=== PATIENT | female | born 1955 | race Caucasian/White ===

== ENCOUNTER → 2018-01-08 12:01 | Outpatient (CLI) | payer MEDICAID ==
[~2018-01-08 12:01] MED LIST: BENZONATATE200 MG PO; CORDARONE200 MG PO; HEMOCYTE PLUS C1 CAP PO; IPRAT-ALBUT 0.5-3 ML UPD; KLOR-CON M2020 MEQ; LEVAQUIN750 MG PO; LOPRESSOR25 MG PO; MEDROL DOSE PACK4 MG PO; PROAIR HFA8.5 GM INH; REMERON30 MG PO; SYMBICORT 16010.2 GM INH
[2018-01-10 10:21] VITALS: BMI 18.7
== END | disposition home or self-care (01) ==
LOC: D.ECHO 12:00
DX: I31.3 Pericardial effusion (noninflammatory) (principal)

== ENCOUNTER 2018-01-09 15:11 | Inpatient (IN) | payer MEDICAID ==
[~2018-01-09] VITALS: Ht 152.4 cm; Wt 45.7 kg
--- NOTE | ~2018-01-09 | HP ---
PATIENT: KARTIK HERNANDEZ MEDICAL RECORD: [id number] ACCOUNT: [id number] LOCATION:D.[facility] : 55 ADMISSION DATE: 01/09/18 HISTORY AND PHYSICAL EXAMINATION KARTIK Chand (62yo, F) ID# [id number]. Date/Time01/08/2018 11:03PQZSB35/12/195Service Dept.NPP_[facility] ClinicProviderEDRIO JUAREZ MDInsuranceMed Primary: [place] Insurance # : [id number] PCP : MIKAL GOMES Employer Name : RETIRED Prescription: [employer] [employer] - Member is eligible. Chief Complaint pericardial effusion Patient's Care Team Primary Care Provider (): MIKAL GOMES: [address] [place] [address], , Vitals BP:112/70 sitting L arm 01/08/2018 11:14 amBP Cuff Size:adult 01/08/2018 11:14 amHR:100,reg 01/08/2018 11:14 amHt:5 ft 01/08/2018 11:14 amWt:96 lbs 01/08/2018 11:14 amNotes:short of breath except for 24-48 hours after treatments, when it is better. 01/08/2018 11:15 amBMI:18.7 01/08/2018 11:14 amAllergies Reviewed Allergies ANIMAL DANDERDARVONNUT - UNSPECIFIEDMedications Reviewed Medications Chantix Starting Month Box 0.5 mg (11)-1 mg (42) tablets in dose pack10/18/17 filledMagell[place] Medicaid Administrationescitalopram 5 mg usvyai79/05/18 filledMag[place] Medicaid Administrationmirtazapine 30 mg apumsk88/30/18 filledMag[place] Medicaid Administrationondansetron HCl 8 mg suzpwt24/20/18 filledMag[place] Medicaid Administrationoxygen 2LNC at night01/08/18 enteredKathy Wilsonpotassium chloride ER 20 mEq tablet,extended /27/18 filledAlgellan Medicaid AdministrationProAir HFA 90 mcg/actuation aerosol jeobmzo00/27/18 filledMagell[place] Medicaid AdministrationProblems Reviewed Problems Pericardial effusion - Onset: 01/02/2018 Family History Reviewed Family History Mother- Heart diseaseSocial History Reviewed Social History Cardiology Family history of heart disease?: Y Smoking Status: Current every day smoker Smoker (1/2 PPD) High Cholesterol: N High blood pressure: N Diabetes: N Alcohol intake: Occasional Diet: Regular Occupation: disabled Tobacco-years of use: 30 Surgical History Reviewed Surgical History HISTORY AND PHYSICAL [id number] KARTIK HERNANDEZ Removal of gallbladder Other - 08/27/1999 - facial fracture repair [employer] History (not configured) Past Medical History Reviewed Past Medical History Anemia: Y Cancer: Y - NSC lung ca Dizzy Spells: Y Shortness of Breath: Y Documents for Discussion N/A Screening None recorded. HPI Dyspnea Reported by patient. Quality: can't catch breath Severity: moderate Onset/Timing: daily Context: with activity; at rest Alleviating Factors: better after chemo Aggravating Factors: activity Associated Symptoms: no palpitations; no orthopnea; no fever; no chills; no dietary indiscretion; no hemoptysis; no weight gain; no dyspepsia; chest pain/discomfort; wheezing; coughing up sputum; lightheadedness pericardial effusion Non-small cell carcinoma right lung ROS Patient reports weight loss (20 lbs) and exercise intolerance but reports no fever, no night sweats, and no significant weight gain. She reports vision change (OD) but reports no dry eyes and no irritation. She reports jugular vein distension but reports no swollen glands. S he reports no chest pain, no arm pain on exertion, no shortness of breath when walking, no shortness of breath when lying down, no palpitations, and no known heart murmur; rresting tachycardia. She reports cough and shortness of breath but reports no wheez ing and no coughing up blood. She reports muscle aches and muscle weakness but reports no arthralgias/joint pain, no back pain, and no swelling in the extremities. She reports no swollen glands and no bruising; neutropenia. She reports no difficulty hearin g and no ear pain. She reports no frequent nosebleeds and no nose/sinus problems. She reports no sore throat, no bleeding gums, no snoring, no dry mouth, no mouth ulcers, no oral abnormalities, and no teeth problems. She reports no abdominal pain, no vomi t ing, normal appetite, no diarrhea, not vomiting blood, no nausea, and no constipation. She reports no incontinence, no difficulty urinating, no hematuria, and no increased frequency. She reports no abnormal mole, no jaundice, and no rashes. She reports no loss of consciousness, no weakness, no numbness, no seizures, no dizziness, and no headaches. She reports no depression, no sleep disturbances, feeling safe in relationship, and no alcohol abuse. She reports no fatigue. She reports no runny nose, no sinus pressure, no itching, no hives, and no frequent sneezing. ROS as noted in the HPI Physical Exam Patient is a 62-year-old female. Constitutional: General Appearance cachectic. Level of Distress chronically ill. Ambulation ambulating normally. HISTORY AND PHYSICAL [id number] KARTIK HERNANDEZ Cardiovascular: Apical Impulse not displaced or no thrill. Heart Auscultation normal s1 and s2; no murmurs, rubs, or gallops; and RRR and tachycardia. Neck Vessels JVD. Arterial Pulses no abdominal aorta bruits, femoral bruits, or popliteal bruits and 2+ bilateral, carotid 2+ bilateral, femoral 2+ bilateral, popliteal 2+ bilateral, and dorsalis pedis 2+ bilateral. Edema no edema or varicosities. Lungs: Repiratory Effort no dyspnea. Percussion dullness or flatness (right long) and hyperresonance (bilateral). Auscultation no wheezing, rhonchi, or rales / crackles; decreased breath sounds (right hemithorax) and diminished air movement (right); and CTA except as noted. Abdomen: Bowl Sounds normal. Inspection and Palpation no tenderness, guarding, masses, or re bound tenderness and soft and non-distended. Liver non-tender and no hepatomegaly. Spleen non-tender and no splenomegaly. Hernia none palpable. Musculoskeletal System: Gait And Stance normal gait and stance. Digits and Nails normal nails and no cyanosis. Neurologic: Cranial Nerves grossly intact. Reflexes DTRs 2+ bilaterally throughout. Sensation grossly intact. Lymph Nodes: Lymph Nodes no cervical LAD, supraclavicular LAD, axillary LAD, or inguinal LAD. Eyes: Lids and Conjunctivae no discharge or pallor and non-injected. Pupils PERRLA. Cornea grossly intact. EOM EOMI. Lens clear. Sclera non-icteric. Neck: Neck no masses, enlarged lymph nodes, or carotid bruits and supple and trachea midline. Thyroid no enlargement or nodules and non-tender. Skin: Inspection and Palpation no rash, lesions, ulcers, jaundice, or abnormal nevi. Assessment / Plan non-small cell carcinoma right lung with obstructive atelectasis Moderate to large pericardial effusion symptomatic 1. Pericardial effusion I31.3: Pericardial effusion (noninflammatory) Discussion Notes I think that she would benefit from drainage of pericardium Will repeat echocardiogram Review lab for neutropenia FREDI JUAREZ MD CC: [id number] DICTATION DATE: 01/08/18 1100 LINE INSTALLER REPAIRER: DM 01/09/18 1514 ADM IN [facility] [address] [place] [address]
--- NOTE | ~2018-01-09 | OP ---
PATIENT NAME: KARTIK HERNANDEZ MEDICAL RECORD: [id number] :55 LOCATION:D.CVI D.CV01 ADMISSION DATE:01/09/18 SURGEON: AJAY HEATH MD DATE OF OPERATION: 01/11/2018 SURGEON: Ajay Heath MD ASSISTANTS: Erik Wilson MD and MIRANDA Garner. OPERATION PERFORMED: Subxiphoid pericardial window. PREOPERATIVE DIAGNOSES: Pericardial effusion and history of lung cancer. POSTOPERATIVE DIAGNOSES: Pericardial effusion and history of lung cancer. ANESTHESIA: General endotracheal anesthesia. ESTIMATED BLOOD LOSS: Minimal. COMPLICATIONS: None. SPECIMENS: 1. 1 x 1 cm pericardial biopsy for permanent pathology. 2. Pericardial fluid for cytology, aerobic, anaerobic, AFB, and fungal cultures. COMPLICATIONS: None. CONDITION: Stable. DISPOSITION: CV ICU. OPERATIVE FINDINGS: 1. Transesophageal echocardiography revealed circumferential pericardial effusion with no evidence of right ventricular collapse, complete drainage. 2. 500 cc proteinaceous pericardial fluid. 3. Systolic blood pressure increased about 20 points on drainage. OPERATIVE INDICATIONS: Pericardial effusion. History of lung cancer, dyspnea. OPERATIVE FINDINGS: With the patient asleep, the chest was prepped and draped. Vertical incision over the xiphoid was made. There was no significant xiphoid process. Upper pressure of the left costal margin was performed after dividing the fascia and the pericardium was identified, aspirated and incised. The fluid was removed and sent for culture. The drain was placed through a separate stab wound. Hemostasis was assured. Marcaine was placed and the wound was closed in 3 layers. The patient was stable to CV ICU. TRANSINT:[id number] Voice Confirmation ID: [id number] DOCUMENT ID: [id number] OPERATIVE REPORT [id number] KARTIK HERNANDEZ AJAY HEATH MD at 1106 CC: RALF LOPEZ MD [id number] DICTATION DATE: 01/11/18 1550 MOP MAN: 01/11/18 2254 ADM IN [facility] [address] [place] [id number]
[2018-01-09 16:35] LABS: BASOPHILS 0.2 % (0-2); EOSINOPHILS 0.4 % (0-7); HEMOGLOBIN 8.4 g/dL (12-16); IMMATURE GRANULOCYTES 0.4 % (0-5); LYMPHOCYTES 20.2 % (15-50); MCH 29.3 pg (26.0-34.0); MCHC 32.3 g/dL (31.0-37.0); MCV 90.6 fL (80.0-100.0); MEAN PLATELET VOLUME 9.5 fL (7.4-10.4); MONOCYTES 8.3 % (2-11); NEUTROPHILS 70.5 % (40-80); PLATELET COUNT 178 10x3/uL (130-400); RBC 2.87 10x6/uL (4.00-5.40); RDW 18.9 % (11.5-14.5); WBC 4.5 10x3/uL (4.8-10.8)
[2018-01-09 16:50] LABS: APTT 25.7 SECONDS (22.8-39.4); INR 1.06 (0.85-1.17); PROTIME 13.4 SECONDS (11.6-15.0)
[2018-01-09 16:55] LABS: ALBUMIN 2.7 g/dL (3.4-5.0); ANION GAP 16.6 mmol/L (8-16); BILIRUBIN - TOTAL 0.27 mg/dL (0.2-1.3); CALCIUM 8.2 mg/dL (8.5-10.1); CARBON DIOXIDE 28.7 mmol/L (21.0-32.0); POTASSIUM - SERUM 4.3 mmol/L (3.5-5.1); PROTEIN - SERUM 6.8 g/dL (6.4-8.2)
[2018-01-09 21:54] VITALS: BP 103/59
[2018-01-10 02:37] VITALS: BP 106/58
[2018-01-10 04:54] VITALS: BMI 18.7
[2018-01-10 05:01] VITALS: BP 118/71
[2018-01-10 05:53] LABS: APPEARANCE CLEAR (CLEAR); BILIRUBIN NEGATIVE (NEGATIVE); COLOR YELLOW (YELLOW); GLUCOSE NEGATIVE (NEGATIVE); KETONE NEGATIVE (NEGATIVE); NITRITE NEGATIVE (NEGATIVE); PROTEIN NEGATIVE (NEGATIVE); SPECIFIC GRAVITY 1.015 (1.005-1.020); UROBILINOGEN NORMAL (NORMAL)
[2018-01-10 05:54] LABS: BACTERIA FEW /hpf (NONE SEEN); EPITHELIAL CELLS 0-5 /hpf (0-5); RED CELLS - URINE 0-5 /hpf (0-5); WHITE CELLS - URINE 0-5 /hpf (0-5)
[2018-01-10 06:33] LABS: HEMATOCRIT 24.9 % (36.0-48.0); MCHC 32.1 g/dL (31.0-37.0); MCV 90.2 fL (80.0-100.0); MEAN PLATELET VOLUME 9.4 fL (7.4-10.4); PLATELET COUNT 153 10x3/uL (130-400); RBC 2.76 10x6/uL (4.00-5.40); RDW 19.1 % (11.5-14.5)
[2018-01-10 06:36] LABS: WBC 3.1 10x3/uL (4.8-10.8)
[2018-01-10 07:25] LABS: BASOPHILS 1 % (0-2); EOSINOPHILS 1 % (0-7); LYMPHOCYTES 32 % (15-50); MONOCYTES 6 % (2-11); NEUTROPHILS 60 % (40-80); PLATELET ESTIMATE NORMAL
[2018-01-10 09:02] VITALS: BP 121/75
[2018-01-10 10:21] VITALS: Ht 152.4 cm; Wt 45.7 kg
[2018-01-10] MEDS ORDERED: REMERON30 MG PO (13:08)
[2018-01-10] MEDS ORDERED: BENZONATATE200 MG PO (13:10)
[2018-01-10] MEDS ORDERED: PROAIR HFA8.5 GM INH (13:11)
[2018-01-10] MEDS ORDERED: KLOR-CON M2020 MEQ (13:12)
[2018-01-10 13:57] VITALS: BP 108/69
[2018-01-10 14:58] LABS: BASOPHILS 0.4 % (0-2); EOSINOPHILS 0.4 % (0-7); HEMATOCRIT 24.5 % (36.0-48.0); HEMOGLOBIN 7.8 g/dL (12-16); LYMPHOCYTES 31.4 % (15-50); MCH 28.8 pg (26.0-34.0); MCHC 31.8 g/dL (31.0-37.0); MCV 90.4 fL (80.0-100.0); MEAN PLATELET VOLUME 9.4 fL (7.4-10.4); NEUTROPHILS 56.8 % (40-80); PLATELET COUNT 142 10x3/uL (130-400); RBC 2.71 10x6/uL (4.00-5.40); RDW 18.8 % (11.5-14.5); WBC 2.6 10x3/uL (4.8-10.8)
[2018-01-10 15:11] LABS: ALBUMIN 2.4 g/dL (3.4-5.0); ANION GAP 12.6 mmol/L (8-16); BILIRUBIN - TOTAL 0.24 mg/dL (0.2-1.3); CALCIUM 7.4 mg/dL (8.5-10.1); CARBON DIOXIDE 29.7 mmol/L (21.0-32.0); PHOSPHOROUS 3.8 mg/dL (2.5-4.9); URIC ACID 4.3 mg/dL (2.6-7.2)
[2018-01-10 15:15] LABS: APTT 26.4 SECONDS (22.8-39.4); INR 1.01 (0.85-1.17); POTASSIUM - SERUM 3.3 mmol/L (3.5-5.1); PROTIME 12.9 SECONDS (11.6-15.0)
[2018-01-10 17:20] VITALS: BP 97/62
[2018-01-10 21:15] VITALS: BP 91/58
[2018-01-11] VITALS (16 sets, daily range): BP systolic 90–134; BP diastolic 57–84
[2018-01-11 00:51] LABS: APPEARANCE CLEAR (CLEAR); BILIRUBIN NEGATIVE (NEGATIVE); COLOR YELLOW (YELLOW); GLUCOSE NEGATIVE (NEGATIVE); KETONE NEGATIVE (NEGATIVE); NITRITE NEGATIVE (NEGATIVE); PROTEIN NEGATIVE (NEGATIVE); UROBILINOGEN NORMAL (NORMAL)
[2018-01-11 16:32] LABS: BASOPHILS 0 % (0-2); EOSINOPHILS 0.3 % (0-7); HEMATOCRIT 28.8 % (36.0-48.0); HEMOGLOBIN 9.3 g/dL (12-16); IMMATURE GRANULOCYTES 0.3 % (0-5); LYMPHOCYTES 31.3 % (15-50); MCH 29.2 pg (26.0-34.0); MCHC 32.3 g/dL (31.0-37.0); MCV 90.6 fL (80.0-100.0); MEAN PLATELET VOLUME 9.2 fL (7.4-10.4); MONOCYTES 9.3 % (2-11); NEUTROPHILS 58.8 % (40-80); PLATELET COUNT 127 10x3/uL (130-400); RBC 3.18 10x6/uL (4.00-5.40); RDW 18.6 % (11.5-14.5)
[2018-01-11 16:38] LABS: CALC OSMOLALITY 276 mosm/kg (275-300); CALCIUM 7.6 mg/dL (8.5-10.1); CARBON DIOXIDE 27.9 mmol/L (21.0-32.0); CHLORIDE - SERUM 102 mmol/L (98-107); CREATININE - SERUM 0.8 mg/dL (0.6-1.3); GLUCOSE 83 mg/dL (74-106); POTASSIUM - SERUM 3.5 mmol/L (3.5-5.1); SODIUM 140 mmol/L (136-145); UREA NITROGEN 10 mg/dL (7-18); eGFR NON AFRICAN AMERICAN 77 mL/min (90-120)
[2018-01-12] VITALS (32 sets, daily range): BP systolic 91–137; BP diastolic 43–69
[2018-01-12 06:17] LABS: HEMATOCRIT 26.6 % (36.0-48.0); HEMOGLOBIN 8.6 g/dL (12-16); MCH 29.5 pg (26.0-34.0); MCHC 32.3 g/dL (31.0-37.0); MCV 91.1 fL (80.0-100.0); MEAN PLATELET VOLUME 9.8 fL (7.4-10.4); RBC 2.92 10x6/uL (4.00-5.40); RDW 18.7 % (11.5-14.5); WBC 3.5 10x3/uL (4.8-10.8)
[2018-01-12 06:43] LABS: ALBUMIN 2.2 g/dL (3.4-5.0); ANION GAP 10.5 mmol/L (8-16); BILIRUBIN - TOTAL 0.6 mg/dL (0.2-1.3); CALCIUM 7.3 mg/dL (8.5-10.1); CARBON DIOXIDE 29.4 mmol/L (21.0-32.0); CREATININE - SERUM 0.9 mg/dL (0.6-1.3); POTASSIUM - SERUM 3.9 mmol/L (3.5-5.1); PROTEIN - SERUM 5.7 g/dL (6.4-8.2)
[2018-01-13] VITALS (37 sets, daily range): BP systolic 79–130; BP diastolic 41–68
[2018-01-13 06:47] LABS: HEMOGLOBIN 7.4 g/dL (12-16); MCH 29.6 pg (26.0-34.0); MCHC 32.2 g/dL (31.0-37.0); MEAN PLATELET VOLUME 9.8 fL (7.4-10.4); RBC 2.5 10x6/uL (4.00-5.40); RDW 18.8 % (11.5-14.5); WBC 3.3 10x3/uL (4.8-10.8)
[2018-01-13 07:02] LABS: ALBUMIN 1.9 g/dL (3.4-5.0); ALKALINE PHOSPHATASE 70 U/L (46-116); ALT (SGPT) 9 U/L (10-68); BILIRUBIN - TOTAL 0.22 mg/dL (0.2-1.3); CALC OSMOLALITY 277 mosm/kg (275-300); CALCIUM 7.2 mg/dL (8.5-10.1); CARBON DIOXIDE 29.2 mmol/L (21.0-32.0); CHLORIDE - SERUM 103 mmol/L (98-107); CREATININE - SERUM 0.8 mg/dL (0.6-1.3); GLUCOSE 114 mg/dL (74-106); PROTEIN - SERUM 5.7 g/dL (6.4-8.2); SODIUM 139 mmol/L (136-145); UREA NITROGEN 9 mg/dL (7-18); eGFR NON AFRICAN AMERICAN 77 mL/min (90-120)
[2018-01-13 07:05] LABS: POTASSIUM - SERUM 3.3 mmol/L (3.5-5.1)
[2018-01-13 15:08] LABS: ACID FAST SMEAR Negative (()); AFB SPECIMEN PROCESSING Concentration (())
[2018-01-14] VITALS (27 sets, daily range): BP systolic 90–135; BP diastolic 43–78
[2018-01-14 05:51] LABS: HEMATOCRIT 25.2 % (36.0-48.0); HEMOGLOBIN 8.3 g/dL (12-16); MCH 29.9 pg (26.0-34.0); MCHC 32.9 g/dL (31.0-37.0); MCV 90.6 fL (80.0-100.0); PLATELET COUNT 69 10x3/uL (130-400); RBC 2.78 10x6/uL (4.00-5.40); RDW 17.7 % (11.5-14.5); WBC 2.6 10x3/uL (4.8-10.8)
[2018-01-14 06:20] LABS: ALBUMIN 1.9 g/dL (3.4-5.0); ALKALINE PHOSPHATASE 70 U/L (46-116); ALT (SGPT) 11 U/L (10-68); BILIRUBIN - TOTAL 0.34 mg/dL (0.2-1.3); CALC OSMOLALITY 275 mosm/kg (275-300); CALCIUM 7.9 mg/dL (8.5-10.1); CARBON DIOXIDE 28.4 mmol/L (21.0-32.0); CHLORIDE - SERUM 103 mmol/L (98-107); CREATININE - SERUM 0.7 mg/dL (0.6-1.3); GLUCOSE 129 mg/dL (74-106); PROTEIN - SERUM 5.7 g/dL (6.4-8.2); SODIUM 138 mmol/L (136-145); UREA NITROGEN 8 mg/dL (7-18); eGFR NON AFRICAN AMERICAN 90 mL/min (90-120)
[2018-01-14 06:23] LABS: POTASSIUM - SERUM 3.9 mmol/L (3.5-5.1)
[2018-01-14 09:10] LABS: BASOPHILS 0.4 % (0-2); EOSINOPHILS 1.2 % (0-7); IMMATURE GRANULOCYTES 0.4 % (0-5); LYMPHOCYTES 30.9 % (15-50); MONOCYTES 15.8 % (2-11); NEUTROPHILS 51.3 % (40-80)
[2018-01-14 09:20] LABS: INR 1.01 (0.85-1.17); PROTIME 12.9 SECONDS (11.6-15.0)
[2018-01-14 13:14] LABS: FUNGUS STAIN Final report (())
[2018-01-14 18:36] LABS: MACROPHAGES BF 3 %; MESOTHELIALS BF 1 %; NEUT - BF 4 %
[2018-01-15] VITALS (19 sets, daily range): BP systolic 86–121; BP diastolic 44–67
[2018-01-15 06:08] LABS: HEMATOCRIT 25.7 % (36.0-48.0); HEMOGLOBIN 8.3 g/dL (12-16); MCH 29.7 pg (26.0-34.0); MCHC 32.3 g/dL (31.0-37.0); MCV 92.1 fL (80.0-100.0); MEAN PLATELET VOLUME 10.5 fL (7.4-10.4); PLATELET COUNT 64 10x3/uL (130-400); RBC 2.79 10x6/uL (4.00-5.40); RDW 17.9 % (11.5-14.5); WBC 3.1 10x3/uL (4.8-10.8)
[2018-01-15 06:25] LABS: ALBUMIN 2.1 g/dL (3.4-5.0); BILIRUBIN - TOTAL 0.4 mg/dL (0.2-1.3); CALCIUM 8.6 mg/dL (8.5-10.1); CARBON DIOXIDE 28.5 mmol/L (21.0-32.0)
[2018-01-15 06:30] LABS: CREATININE - SERUM 0.9 mg/dL (0.6-1.3); POTASSIUM - SERUM 4.5 mmol/L (3.5-5.1)
[2018-01-15 07:37] LABS: PLATELET ESTIMATE DECREASED
[2018-01-16] VITALS (12 sets, daily range): BP systolic 84–122; BP diastolic 43–66
[2018-01-16 06:22] LABS: HEMATOCRIT 28.3 % (36.0-48.0); HEMOGLOBIN 9.4 g/dL (12-16); MCH 30.2 pg (26.0-34.0); MCHC 33.2 g/dL (31.0-37.0); MEAN PLATELET VOLUME 10.1 fL (7.4-10.4); RBC 3.11 10x6/uL (4.00-5.40); RDW 17.8 % (11.5-14.5); WBC 3.4 10x3/uL (4.8-10.8)
[2018-01-16 06:52] LABS: ALBUMIN 2.3 g/dL (3.4-5.0); ANION GAP 12.6 mmol/L (8-16); BILIRUBIN - TOTAL 0.31 mg/dL (0.2-1.3); CALCIUM 8.7 mg/dL (8.5-10.1); CARBON DIOXIDE 28.5 mmol/L (21.0-32.0); POTASSIUM - SERUM 4.1 mmol/L (3.5-5.1); PROTEIN - SERUM 6.8 g/dL (6.4-8.2)
[2018-01-16 17:13] LABS: ACID FAST SMEAR Negative (()); AFB SPECIMEN PROCESSING Concentration (())
[2018-01-17] VITALS: BP 110/53
[2018-01-17 05:24] LABS: HEMATOCRIT 25.4 % (36.0-48.0); HEMOGLOBIN 8.2 g/dL (12-16); MCH 29.8 pg (26.0-34.0); MCHC 32.3 g/dL (31.0-37.0); MCV 92.4 fL (80.0-100.0); RBC 2.75 10x6/uL (4.00-5.40); RDW 18.7 % (11.5-14.5); WBC 3.7 10x3/uL (4.8-10.8)
[2018-01-17 05:49] LABS: ANION GAP 13.3 mmol/L (8-16); CALCIUM 8.2 mg/dL (8.5-10.1); CARBON DIOXIDE 29.2 mmol/L (21.0-32.0); CREATININE - SERUM 1.1 mg/dL (0.6-1.3); POTASSIUM - SERUM 3.5 mmol/L (3.5-5.1)
[2018-01-17 06:11] VITALS: BP 134/60
[2018-01-17 10:06] VITALS: BP 126/64
[2018-01-17] MEDS ORDERED: LEVAQUIN750 MG PO (10:52)
[2018-01-17] MEDS ORDERED: HEMOCYTE PLUS C1 CAP PO (10:52)
[2018-01-17] MEDS ORDERED: CORDARONE200 MG PO (10:54)
[2018-01-17] MEDS ORDERED: LOPRESSOR25 MG PO (10:54)
[2018-01-17 11:22] VITALS: BP 102/51
[2018-01-17] MEDS ORDERED: IPRAT-ALBUT 0.5-3 ML UPD (15:31)
[2018-01-17] MEDS ORDERED: MEDROL DOSE PACK4 MG PO (15:31)
[2018-01-17] MEDS ORDERED: SYMBICORT 16010.2 GM INH (15:32)
[2018-01-17 17:12] LABS: FUNGUS MYCOLOGY CULTURE Preliminary report (())
[2018-01-18 13:19] LABS: FUNGUS STAIN Final report (())
[2018-01-21 16:07] LABS: FUNGUS MYCOLOGY CULTURE Preliminary report (())
== END 2018-01-17 19:59 | disposition home health service (06) | DRG 270 ==
LOC: D.CVICU 15:11 → D.MS 15:11 → D.SDCHOLD 01-10 12:28 → D.MS 01-10 12:32 → D.CVICU 01-11 15:38 → D.ICU 01-16 13:17 → D.M2 01-16 20:12
PROVIDERS: Internal Medicine Cardiovascular Disease; Radiology Diagnostic Radiology
PROC: 0W9D0ZZ Drainage of Pericardial Cavity, Open Approach (ICD-10-PCS; 2018-01-11)
PROC: 0W993ZZ Drainage of Right Pleural Cavity, Percutaneous Approach (ICD-10-PCS; principal; 2018-01-14 11:34)
DX: I31.3 Pericardial effusion (noninflammatory) (principal); D61.810 Antineoplastic chemotherapy induced pancytopenia; C34.90 Malignant neoplasm of unspecified part of unspecified bronchus or lung; J90 Pleural effusion, not elsewhere classified; I82.621 Acute embolism and thrombosis of deep veins of right upper extremity; J94.2 Hemothorax; D64.9 Anemia, unspecified; I08.3 Combined rheumatic disorders of mitral, aortic and tricuspid valves; F17.200 Nicotine dependence, unspecified, uncomplicated; I48.91 Unspecified atrial fibrillation; I31.4 Cardiac tamponade

== ENCOUNTER → 2018-02-19 12:12 | Outpatient (CLI) | payer MEDICAID ==
[2018-01-10 10:21] VITALS: BMI 18.7
[2018-02-19 12:36] LABS: HEMOGLOBIN 8.5 g/dL (12-16); MCHC 32.7 g/dL (31.0-37.0); MCV 97.7 fL (80.0-100.0); MEAN PLATELET VOLUME 9.9 fL (7.4-10.4); RBC 2.66 10x6/uL (4.00-5.40); RDW 17.9 % (11.5-14.5); WBC 7.4 10x3/uL (4.8-10.8)
[2018-02-19 12:53] LABS: ALBUMIN 2.2 g/dL (3.4-5.0); ANION GAP 8.9 mmol/L (8-16); BILIRUBIN - TOTAL 0.2 mg/dL (0.2-1.3); CALCIUM 9.3 mg/dL (8.5-10.1); CARBON DIOXIDE 31.7 mmol/L (21.0-32.0); CREATININE - SERUM 0.9 mg/dL (0.6-1.3); POTASSIUM - SERUM 3.6 mmol/L (3.5-5.1); PROTEIN - SERUM 6.9 g/dL (6.4-8.2)
== END | disposition home or self-care (01) ==
LOC: D.LAB 01-31 08:00 → D.RAD 01-31 08:30
PROVIDERS: Internal Medicine Cardiovascular Disease
DX: I31.3 Pericardial effusion (noninflammatory) (principal); D64.9 Anemia, unspecified; C34.90 Malignant neoplasm of unspecified part of unspecified bronchus or lung